=== PATIENT | male | born 1960 | race Caucasian/White ===

== ENCOUNTER 2023-10-29 09:37 | Day surgery (SDC) | payer MEDICARE ==
[~2023-10-29 09:37] MED LIST: Sodium Chloride 0.9% 10 ML Syringe FLUSH PRN
[2023-10-29] MEDS: Lactated Ringers 1,000 ML IV SCH (10:02)
[2023-10-29] MEDS ORDERED: Midazolam 1 MG/ML 2 ML SDV ONE (10:49)
[2023-10-29] MEDS ORDERED: fentaNYL 100 MCG/2 ML SDV ONE (10:49)
[2023-10-29] MEDS ORDERED: Propofol 200 MG/20 ML SDV ONE (10:49)
== END 2023-10-29 12:00 | disposition home or self-care (01) ==
LOC: VM.SDS 09:37
PROVIDERS: ATTEND Family Medicine
DX: Z12.11 Encounter for screening for malignant neoplasm of colon (principal); D12.0 Benign neoplasm of cecum; D12.6 Benign neoplasm of colon, unspecified; F17.220 Nicotine dependence, chewing tobacco, uncomplicated; Z98.890 Other specified postprocedural states
CPT/HCPCS: 00811; 45380; 88305; J2250; J2704; J3010; J7120